=== PATIENT | male | born 1935 | race Caucasian/White ===

== ENCOUNTER 2016-12-31 16:56 | Inpatient (IN) | payer MEDICARE ==
[2016-12-31 19:02] LABS: Basophils % (Auto) 0.5 % (0.0-1.8); Eosinophils % (Auto) 1.4 % (0.0-4.3); Hematocrit 37.5 % (35.5-45.6); Hemoglobin 12.6 gm/dl (11.8-15.2); Mean Corpuscular HGB Conc 33 % (32-34); Mean Corpuscular Hemoglobin 32 pg (28-32); Mean Corpuscular Volume 94 fl (84-94); Platelet Count 189 K/mm3 (140-440); Red Blood Count 3.98 M/mm3 (3.65-5.03); Red Cell Distribution Width 13.9 % (13.2-15.2); White Blood Count 7.2 K/mm3 (4.5-11.0)
[2016-12-31 19:09] LABS: Urine Drugs of Abuse Note Disclamer
--- NOTE | 2016-12-31 19:15 | Emergency Department Report ---
ED Altered Mental Status HPI - General Chief Complaint: Altered Mental Status Stated Complaint: CONFUSED/OFF BALANCED Time Seen by Provider: 12/31/16 18:51 Source: EMS Mode of arrival: Stretcher Limitations: Physical Limitation - History of Present Illness Initial Comments: 81-year-old male with a past medical history dementia and hypertension presents the hospital with a steady gait with associated ground-level fall. Patient is oriented to person only. He is alone and staffing administrator is not at the bedside. Nurse reports history from EMS. Apparently for the past 2 days patient has had unsteady shuffling gait, urinary incontinence, and increased confusion. All this is apparently new for the past 2 days. Patient denies any pain. No further history of present illness available at this time. - Related Data Allergies Allergy/AdvReac Type Severity Reaction Status Date / Time Unable to Assess Allergy Unverified 12/31/16 18:26 ED Review of Systems ROS: Stated complaint: CONFUSED/OFF BALANCED Other details as noted in HPI Comment: All other systems reviewed and negative Other: Constitutional: No fevers chills Eyes: No eye pain visual changes ENT: No ear pain or throat pain Neck: Denies pain Respiratory: Denies cough wheezing shortness of breath Cardiovascular: Denies chest pain GI: Denies abdominal pain : Denies dysuria Musculoskeletal: Denies back koki Skin: Denies rash, lesions, erythema Neurologic: Denies headache, numbness, weakness ED Past Medical Hx - Past Medical History Hx Hypertension: Yes Hx Dementia: Yes - Social History Smoking Status: Former Smoker Substance Use Type: None ED Physical Exam - General Limitations: Physical Limitation - Other Other exam information: General: No limitations, patient is alert in no acute distress Head exam: Atraumatic, normocephalic Eyes exam: Normal appearance, pupils equal reactive to light, extraocular movements intact ENT: Moist mucous membrane, normal oropharynx Neck exam: Normal inspection, full range of motion, no meningismus nontender Respiratory exam: Clear to auscultation bilateral, no wheezes, rales, crackles Cardiovascular: Normal rate and rhythm, normal heart sounds Abdomen: Soft, nondistended, and nontender, with normal bowel sounds, no rebound, or guarding Extremity: Full range of motion normal inspection no deformity Back: Normal Inspection, full range of motion, no tenderness Neurologic: Alert, oriented x1, cranial nerves intact, no motor or sensory deficit Psychiatric: normal affect, normal mood Skin: Warm, dry, intact ED Course Vital Signs 12/31/16 12/31/16 18:19 18:52 Temperature 98.8 F Pulse Rate 64 Respiratory 20 18 Rate Blood Pressure 158/78 Blood Pressure 158/78 [Right] O2 Sat by Pulse 100 100 Oximetry - Lab Data Result diagrams: 12/31/16 18:37 12/31/16 18:37 Lab Results 12/31/16 12/31/16 12/31/16 Range/Units 18:37 18:37 18:37 WBC 7.2 (4.5-11.0) K/mm3 RBC 3.98 (3.65-5.03) M/mm3 Hgb 12.6 (11.8-15.2) gm/dl Hct 37.5 (35.5-45.6) % MCV 94 (84-94) fl MCH 32 (28-32) pg MCHC 33 (32-34) % RDW 13.9 (13.2-15.2) % Plt Count 189 (140-440) K/mm3 Lymph % (Auto) 30.7 (13.4-35.0) % [place] % (Auto) 11.2 H (0.0-7.3) % Eos % (Auto) 1.4 (0.0-4.3) % Baso % (Auto) 0.5 (0.0-1.8) % Lymph # 2.2 (1.2-5.4) K/mm3 [place] # 0.8 (0.0-0.8) K/mm3 Eos # 0.1 (0.0-0.4) K/mm3 Baso # 0.0 (0.0-0.1) K/mm3 Seg Neutrophils % 56.2 (40.0-70.0) % Seg Neutrophils # 4.0 (1.8-7.7) K/mm3 Sodium 141 (137-145) mmol/L Potassium 3.8 (3.6-5.0) mmol/L Chloride 102.0 (98-107) mmol/L Carbon Dioxide 27 (22-30) mmol/L Anion Gap 16 mmol/L BUN 21 H (9-20) mg/dL Creatinine 1.7 H (0.8-1.5) mg/dL Estimated GFR 39 ml/min BUN/Creatinine Ratio 12.35 % Glucose 99 (75-100) mg/dL Lactic Acid 1.3 (0.7-2.0) mmol/L Calcium 9.4 (8.4-10.2) mg/dL Magnesium 2.4 H (1.7-2.3) mg/dL Total Bilirubin 0.4 (0.1-1.2) mg/dL AST 24 (5-40) units/L ALT 14 (7-56) units/L Alkaline Phosphatase 117 (35-129) units/L Total Protein 7.0 (6.3-8.2) g/dL Albumin 3.8 L (3.9-5) g/dL Albumin/Globulin Ratio 1.2 % TSH (0.270-4.200) mlU/mL Urine Color (Yellow) Urine Turbidity (Clear) Urine pH (5.0-7.0) Ur Specific [place] (1.003-1.030) Urine Protein (Negative) mg/dL Urine Glucose (UA) (Negative) mg/dL Urine Ketones (Negative) mg/dL Urine Blood (Negative) Urine Nitrite (Negative) Urine Bilirubin (Negative) Urine Urobilinogen (<2.0) mg/dL Ur Leukocyte Esterase (Negative) Urine WBC (Auto) (0.0-6.0) /HPF Urine RBC (Auto) (0.0-6.0) /HPF U Epithel Cells (Auto) (0-13.0) /HPF Hyaline Casts /LPF Urine Mucus /HPF Salicylates (2.8-20.0) mg/dL Urine Opiates Screen Urine Methadone Screen Acetaminophen (10.0-30.0) ug/mL Ur Barbiturates Screen Ur Phencyclidine Scrn Ur Amphetamines Screen U Benzodiazepines Scrn Urine Cocaine Screen U Marijuana (THC) Screen Drugs of Abuse Note Plasma/Serum Alcohol (0-0.07) gm% 12/31/16 12/31/16 12/31/16 Range/Units 18:37 18:37 18:37 WBC (4.5-11.0) K/mm3 RBC (3.65-5.03) M/mm3 Hgb (11.8-15.2) gm/dl Hct (35.5-45.6) % MCV (84-94) fl MCH (28-32) pg MCHC (32-34) % RDW (13.2-15.2) % Plt Count (140-440) K/mm3 Lymph % (Auto) (13.4-35.0) % [place] % (Auto) (0.0-7.3) % Eos % (Auto) (0.0-4.3) % Baso % (Auto) (0.0-1.8) % Lymph # (1.2-5.4) K/mm3 [place] # (0.0-0.8) K/mm3 Eos # (0.0-0.4) K/mm3 Baso # (0.0-0.1) K/mm3 Seg Neutrophils % (40.0-70.0) % Seg Neutrophils # (1.8-7.7) K/mm3 Sodium (137-145) mmol/L Potassium (3.6-5.0) mmol/L Chloride (98-107) mmol/L Carbon Dioxide (22-30) mmol/L Anion Gap mmol/L BUN (9-20) mg/dL Creatinine (0.8-1.5) mg/dL Estimated GFR ml/min BUN/Creatinine Ratio % Glucose (75-100) mg/dL Lactic Acid (0.7-2.0) mmol/L Calcium (8.4-10.2) mg/dL Magnesium (1.7-2.3) mg/dL Total Bilirubin (0.1-1.2) mg/dL AST (5-40) units/L ALT (7-56) units/L Alkaline Phosphatase (35-129) units/L Total Protein (6.3-8.2) g/dL Albumin (3.9-5) g/dL Albumin/Globulin Ratio % TSH 2.840 (0.270-4.200) mlU/mL Urine Color (Yellow) Urine Turbidity (Clear) Urine pH (5.0-7.0) Ur Specific [place] (1.003-1.030) Urine Protein (Negative) mg/dL Urine Glucose (UA) (Negative) mg/dL Urine Ketones (Negative) mg/dL Urine Blood (Negative) Urine Nitrite (Negative) Urine Bilirubin (Negative) Urine Urobilinogen (<2.0) mg/dL Ur Leukocyte Esterase (Negative) Urine WBC (Auto) (0.0-6.0) /HPF Urine RBC (Auto) (0.0-6.0) /HPF U Epithel Cells (Auto) (0-13.0) /HPF Hyaline Casts /LPF Urine Mucus /HPF Salicylates < 0.3 L (2.8-20.0) mg/dL Urine Opiates Screen Urine Methadone Screen Acetaminophen < 15.0 (10.0-30.0) ug/mL Ur Barbiturates Screen Ur Phencyclidine Scrn Ur Amphetamines Screen U Benzodiazepines Scrn Urine Cocaine Screen U Marijuana (THC) Screen Drugs of Abuse Note Plasma/Serum Alcohol (0-0.07) gm% 12/31/16 12/31/16 12/31/16 Range/Units 18:37 18:55 18:55 WBC (4.5-11.0) K/mm3 RBC (3.65-5.03) M/mm3 Hgb (11.8-15.2) gm/dl Hct (35.5-45.6) % MCV (84-94) fl MCH (28-32) pg MCHC (32-34) % RDW (13.2-15.2) % Plt Count (140-440) K/mm3 Lymph % (Auto) (13.4-35.0) % [place] % (Auto) (0.0-7.3) % Eos % (Auto) (0.0-4.3) % Baso % (Auto) (0.0-1.8) % Lymph # (1.2-5.4) K/mm3 [place] # (0.0-0.8) K/mm3 Eos # (0.0-0.4) K/mm3 Baso # (0.0-0.1) K/mm3 Seg Neutrophils % (40.0-70.0) % Seg Neutrophils # (1.8-7.7) K/mm3 Sodium (137-145) mmol/L Potassium (3.6-5.0) mmol/L Chloride (98-107) mmol/L Carbon Dioxide (22-30) mmol/L Anion Gap mmol/L BUN (9-20) mg/dL Creatinine (0.8-1.5) mg/dL Estimated GFR ml/min BUN/Creatinine Ratio % Glucose (75-100) mg/dL Lactic Acid (0.7-2.0) mmol/L Calcium (8.4-10.2) mg/dL Magnesium (1.7-2.3) mg/dL Total Bilirubin (0.1-1.2) mg/dL AST (5-40) units/L ALT (7-56) units/L Alkaline Phosphatase (35-129) units/L Total Protein (6.3-8.2) g/dL Albumin (3.9-5) g/dL Albumin/Globulin Ratio % TSH (0.270-4.200) mlU/mL Urine Color Yellow (Yellow) Urine Turbidity Cloudy (Clear) Urine pH 5.0 (5.0-7.0) Ur Specific [place] 1.020 (1.003-1.030) Urine Protein 30 mg/dl (Negative) mg/dL Urine Glucose (UA) 50 (Negative) mg/dL Urine Ketones Neg (Negative) mg/dL Urine Blood Sm (Negative) Urine Nitrite Neg (Negative) Urine Bilirubin Neg (Negative) Urine Urobilinogen 2.0 (<2.0) mg/dL Ur Leukocyte Esterase Neg (Negative) Urine WBC (Auto) 1.0 (0.0-6.0) /HPF Urine RBC (Auto) 15.0 (0.0-6.0) /HPF U Epithel Cells (Auto) 2.0 (0-13.0) /HPF Hyaline Casts 3 /LPF Urine Mucus 3+ /HPF Salicylates (2.8-20.0) mg/dL Urine Opiates Screen Presumptive negative Urine Methadone Screen Presumptive negative Acetaminophen (10.0-30.0) ug/mL Ur Barbiturates Screen Presumptive negative Ur Phencyclidine Scrn Presumptive negative Ur Amphetamines Screen Presumptive negative U Benzodiazepines Scrn Presumptive negative Urine Cocaine Screen Presumptive negative U Marijuana (THC) Screen Presumptive negative Drugs of Abuse Note Disclamer Plasma/Serum Alcohol < 0.01 (0-0.07) gm% - EKG Data -: EKG Interpreted by Me (sinus 66, rbb, LVH, lad) When compared to previous EKG there are: previous EKG unavailable - Radiology Data Radiology results: report reviewed CT Head: naf - Medical Decision Making cause of alteration in mental status and gait not identified at this time.Plan to admit to hospital for further eval - Differential Diagnosis UTI, encephalopathy, CVA Critical Care Time: No Critical care attestation.: If time is entered above; I have spent that time in minutes in the direct care of this critically ill patient, excluding procedure time. ED Disposition Clinical Impression: Dementia, Mental status change, Unsteady gait, Renal insufficiency Disposition: OP ADMITTED IP TO THIS HOSP Is pt being admited?: Yes Condition: Stable Time of Disposition: 21:48 (Dr toribio/hosp)
[2016-12-31 19:17] LABS: Bilirubin,Urine NEG (Negative); Blood,Urine SM (Negative); Ketones,Urine NEG (Negative); Leukocyte Esterase,Urine NEG (Negative); Mucus,Urine 3+ /HPF; Nitrite,Urine NEG (Negative)
[2016-12-31 19:24] LABS: Albumin 3.8 g/dL (3.9-5); Albumin/Globulin Ratio 1.2 %; BUN/Creatinine Ratio 12.35; Bilirubin,Total 0.4 mg/dL (0.1-1.2); Calcium 9.4 mg/dL (8.4-10.2); Magnesium 2.4 mg/dL (1.7-2.3); Potassium 3.8 mmol/L (3.6-5.0)
--- NOTE | 2016-12-31 21:02 | Cat Scan Report ---
FINAL REPORT PROCEDURE: CT HEAD/BRAIN WO CON TECHNIQUE: Computerized tomography of the head was performed without contrast material. HISTORY: ams COMPARISON: No prior studies are available for comparison. FINDINGS: Skull and scalp: Normal. Paranasal sinuses: Normal. Ventricles and subarachnoid spaces: Are prominent appropriate for patient's age. Cerebrum: There is moderate degree of bilateral periventricular nonspecific white matter hypodensity. An acute intracranial hemorrhage or mass effect is not identified.. Cerebellum and brainstem: No evidence of hemorrhage, acute infarction or mass. Vasculature: Atherosclerotic calcification is noted involving bilateral internal carotid arteries and vertebral arteries. Comments: None. 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
[2016-12-31] MEDS ORDERED: DULCOLAX PR PRN (22:43)
[2016-12-31] MEDS ORDERED: MILK OF MAGNESIA PO PRN (22:43)
[2016-12-31] MEDS ORDERED: TYLENOL PO PRN (22:43)
[2016-12-31] MEDS ORDERED: ZOFRAN IV PRN (22:43)
--- NOTE | 2016-12-31 22:46 | History and Physical Report ---
History of Present Illness Date of examination: 12/31/16 History of present illness: [id number] man with a history of hypertension, dementia was brought to the emergency room because of unsteady gait and frequent fall. FAmily concerned that patient seems to be more confused than baseline. History from the emergency room physician, patient is unable to give a history PAST SURGICAL HISTORY: Unknown SOCIAL HISTORY: Unknown FAMILY HISTORY: Unknown Medications and Allergies Allergies Allergy/AdvReac Type Severity Reaction Status Date / Time Unable to Assess Allergy Verified 12/31/16 22:48 Home Medications Medication Instructions Recorded Confirmed Last Taken Type Donepezil [Aricept] 5 mg PO QHS 12/31/16 12/31/16 Unknown History Lisinopril [Zestril] 20 mg PO QDAY 12/31/16 12/31/16 Unknown History NIFEdipine [Nifedipine ER] 60 mg PO DAILY 12/31/16 12/31/16 Unknown History hydrALAZINE [Apresoline] 25 mg PO BID 12/31/16 12/31/16 Unknown History risperiDONE 0.5 mg PO QDAY 12/31/16 12/31/16 Unknown History traZODone [Desyrel] 100 mg PO QHS 12/31/16 12/31/16 Unknown History Exam - Physical Exam Narrative exam: Gen. appearance: Patient lying in bed, no apparent distress HEENT: Normocephalic, atraumatic, pupils equally round and reactive to light, extraocular movement intact, and no sclericterus,. No JVD or thyromegaly or nodule,neck supple, no carotid bruit ,mucous membranes moist, no exudate or erythema Heart: S1, S2, regular rate and rhythm Lungs: Clear to auscultation bilaterally, breathing comfortable Abdomen: Positive bowel sounds, nontender, nondistended, no organomegaly Extremity: No edema, cyanosis, clubbing Skin: No rash, nodules, warm, dry Neuro: Oriented 3, cranial nerves II-12 intact, speech is fluent, motor and sensory intact - Constitutional Vitals: Temp Pulse Resp BP Pulse Ox 98.8 F 64 18 158/78 100 12/31/16 18:19 12/31/16 18:19 12/31/16 18:52 12/31/16 18:19 12/31/16 18:52 Results - Labs CBC & Chem 7: 12/31/16 18:37 12/31/16 18:37 Labs: Abnormal lab results 12/31/16 12/31/16 12/31/16 Range/Units 18:37 18:37 18:37 [place] % (Auto) 11.2 H (0.0-7.3) % BUN 21 H (9-20) mg/dL Creatinine 1.7 H (0.8-1.5) mg/dL Magnesium 2.4 H (1.7-2.3) mg/dL Albumin 3.8 L (3.9-5) g/dL Salicylates < 0.3 L (2.8-20.0) mg/dL - Imaging and Cardiology EKG: image reviewed CT Scan - head: report reviewed Assessment and Plan Failure to thrive Fall Hypertension Dementia Admits medicine Consult physical therapy, continue appropriate outpatient medication Start DVT prophylaxis
[2017-01-01 06:26] LABS: Basophils % (Auto) 0.6 % (0.0-1.8); Eosinophils % (Auto) 2.2 % (0.0-4.3); Hematocrit 36.8 % (35.5-45.6); Hemoglobin 12.2 gm/dl (11.8-15.2); Mean Corpuscular HGB Conc 33 % (32-34); Mean Corpuscular Hemoglobin 31 pg (28-32); Mean Corpuscular Volume 94 fl (84-94); Platelet Count 187 K/mm3 (140-440); Red Cell Distribution Width 13.6 % (13.2-15.2); White Blood Count 5.8 K/mm3 (4.5-11.0)
[2017-01-01 06:49] LABS: BUN/Creatinine Ratio 12.66; Calcium 8.9 mg/dL (8.4-10.2); Chloride 104.9 mmol/L (98-107); Potassium 3.6 mmol/L (3.6-5.0)
[2017-01-01] MEDS ORDERED: LOVENOX SUB-Q SCH (10:00)
[2017-01-01] MEDS: LOVENOX SUB-Q SCH (10:16)
[2017-01-01] MEDS: RisperDAL PO SCH (13:03)
--- NOTE | 2017-01-01 14:29 | Progress Note ---
Assessment and Plan - Patient Problems (1) Sick sinus syndrome Current Visit: Yes Status: Acute Plan to address problem: supportive care, telemetry monitoring. (2) ARF (acute renal failure) Current Visit: Yes Status: Acute Qualifiers: Acute renal failure type: A Plan to address problem: IVF, supportive care, (3) Encephalopathy acute Current Visit: Yes Status: Acute Plan to address problem: supportive care, ivf, (4) Dementia Current Visit: Yes Status: Acute Qualifiers: Dementia type: D Alzheimer's disease onset: A Dementia behavioral disturbance: D Plan to address problem: bed alarm, fall precautions. continue current care. (5) Debility Current Visit: Yes Status: Acute Plan to address problem: Pt unable to conduct ADL, Case management consulted for Placement/D/C planning. History Interval history: Pt lying in bed, confused, No reported nursing events. Hospitalist Physical - Constitutional Vitals: Temp Pulse Resp BP Pulse Ox 98.3 F 54 L 20 144/71 94 01/01/17 07:40 01/01/17 07:40 01/01/17 07:40 01/01/17 07:40 01/01/17 10:14 General appearance: Present: no acute distress - Neck Neck: Present: supple - Respiratory Respiratory effort: normal Respiratory: bilateral: CTA - Cardiovascular Rhythm: other (bradycardia) - Extremities Extremities: no ischemia Peripheral Pulses: within normal limits - Abdominal General gastrointestinal: soft, non-tender, non-distended - Integumentary Integumentary: Present: clear, dry - Psychiatric Psychiatric: no intact judgment & insight, no memory intact - Neurologic Neurologic: no gait normal Results - Labs CBC & Chem 7: 01/01/17 05:37 01/01/17 05:37 Labs: Laboratory Last Values WBC 5.8 K/mm3 (4.5-11.0) 01/01/17 05:37 RBC 3.90 M/mm3 (3.65-5.03) 01/01/17 05:37 Hgb 12.2 gm/dl (11.8-15.2) 01/01/17 05:37 Hct 36.8 % (35.5-45.6) 01/01/17 05:37 MCV 94 fl (84-94) 01/01/17 05:37 MCH 31 pg (28-32) 01/01/17 05:37 MCHC 33 % (32-34) 01/01/17 05:37 RDW 13.6 % (13.2-15.2) 01/01/17 05:37 Plt Count 187 K/mm3 (140-440) 01/01/17 05:37 Lymph % (Auto) 35.1 % (13.4-35.0) H 01/01/17 05:37 [place] % (Auto) 11.4 % (0.0-7.3) H 01/01/17 05:37 Eos % (Auto) 2.2 % (0.0-4.3) 01/01/17 05:37 Baso % (Auto) 0.6 % (0.0-1.8) 01/01/17 05:37 Lymph # 2.0 K/mm3 (1.2-5.4) 01/01/17 05:37 [place] # 0.7 K/mm3 (0.0-0.8) 01/01/17 05:37 Eos # 0.1 K/mm3 (0.0-0.4) 01/01/17 05:37 Baso # 0.0 K/mm3 (0.0-0.1) 01/01/17 05:37 Seg Neutrophils % 50.7 % (40.0-70.0) 01/01/17 05:37 Seg Neutrophils # 2.9 K/mm3 (1.8-7.7) 01/01/17 05:37 Sodium 144 mmol/L (137-145) 01/01/17 05:37 Potassium 3.6 mmol/L (3.6-5.0) 01/01/17 05:37 Chloride 104.9 mmol/L (98-107) 01/01/17 05:37 Carbon Dioxide 27 mmol/L (22-30) 01/01/17 05:37 Anion Gap 16 mmol/L 01/01/17 05:37 BUN 19 mg/dL (9-20) 01/01/17 05:37 Creatinine 1.5 mg/dL (0.8-1.5) 01/01/17 05:37 Estimated GFR 45 ml/min 01/01/17 05:37 BUN/Creatinine Ratio 12.66 % 01/01/17 05:37 Glucose 98 mg/dL (75-100) 01/01/17 05:37 Lactic Acid 1.2 mmol/L (0.7-2.0) 12/31/16 21:00 Calcium 8.9 mg/dL (8.4-10.2) 01/01/17 05:37 Magnesium 2.4 mg/dL (1.7-2.3) H 12/31/16 18:37 Total Bilirubin 0.4 mg/dL (0.1-1.2) 12/31/16 18:37 AST 24 units/L (5-40) 12/31/16 18:37 ALT 14 units/L (7-56) 12/31/16 18:37 Alkaline Phosphatase 117 units/L (35-129) 12/31/16 18:37 Total Protein 7.0 g/dL (6.3-8.2) 12/31/16 18:37 Albumin 3.8 g/dL (3.9-5) L 12/31/16 18:37 Albumin/Globulin Ratio 1.2 % 12/31/16 18:37 TSH 2.840 mlU/mL (0.270-4.200) 12/31/16 18:37 Urine Color Yellow (Yellow) 12/31/16 18:55 Urine Turbidity Cloudy (Clear) 12/31/16 18:55 Urine pH 5.0 (5.0-7.0) 12/31/16 18:55 Ur Specific [place] 1.020 (1.003-1.030) 12/31/16 18:55 Urine Protein 30 mg/dl mg/dL (Negative) 12/31/16 18:55 Urine Glucose (UA) 50 mg/dL (Negative) 12/31/16 18:55 Urine Ketones Neg mg/dL (Negative) 12/31/16 18:55 Urine Blood Sm (Negative) 12/31/16 18:55 Urine Nitrite Neg (Negative) 12/31/16 18:55 Urine Bilirubin Neg (Negative) 12/31/16 18:55 Urine Urobilinogen 2.0 mg/dL (<2.0) 12/31/16 18:55 Ur Leukocyte Esterase Neg (Negative) 12/31/16 18:55 Urine WBC (Auto) 1.0 /HPF (0.0-6.0) 12/31/16 18:55 Urine RBC (Auto) 15.0 /HPF (0.0-6.0) 12/31/16 18:55 U Epithel Cells (Auto) 2.0 /HPF (0-13.0) 12/31/16 18:55 Hyaline Casts 3 /LPF 12/31/16 18:55 Urine Mucus 3+ /HPF 12/31/16 18:55 Salicylates < 0.3 mg/dL (2.8-20.0) L 12/31/16 18:37 Urine Opiates Screen Presumptive negative 12/31/16 18:55 Urine Methadone Screen Presumptive negative 12/31/16 18:55 Acetaminophen < 15.0 ug/mL (10.0-30.0) 12/31/16 18:37 Ur Barbiturates Screen Presumptive negative 12/31/16 18:55 Ur Phencyclidine Scrn Presumptive negative 12/31/16 18:55 Ur Amphetamines Screen Presumptive negative 12/31/16 18:55 U Benzodiazepines Scrn Presumptive negative 12/31/16 18:55 Urine Cocaine Screen Presumptive negative 12/31/16 18:55 U Marijuana (THC) Screen Presumptive negative 12/31/16 18:55 Drugs of Abuse Note Disclamer 12/31/16 18:55 Plasma/Serum Alcohol < 0.01 gm% (0-0.07) 12/31/16 18:37
[2017-01-01] MEDS: ARICEPT PO SCH (21:47)
[2017-01-02] MEDS: LOVENOX SUB-Q SCH (10:13)
[2017-01-02] MEDS: RisperDAL PO SCH (10:13)
[2017-01-02] MEDS: ARICEPT PO SCH (22:44)
--- NOTE | 2017-01-03 06:41 | Progress Note ---
Assessment and Plan - Patient Problems (1) Sick sinus syndrome Current Visit: Yes Status: Acute Plan to address problem: supportive care, telemetry monitoring. (2) ARF (acute renal failure) Current Visit: Yes Status: Acute Qualifiers: Acute renal failure type: A Plan to address problem: IVF, supportive care, (3) Encephalopathy acute Current Visit: Yes Status: Acute Plan to address problem: supportive care, ivf, (4) Dementia Current Visit: Yes Status: Acute Qualifiers: Dementia type: D Alzheimer's disease onset: A Dementia behavioral disturbance: D Plan to address problem: bed alarm, fall precautions. continue current care. (5) Debility Current Visit: Yes Status: Acute Plan to address problem: Pt unable to conduct ADL, Case management consulted for Placement/D/C planning. (6) DVT prophylaxis Current Visit: Yes Status: Acute History Interval history: Pt lying in bed, confused, No reported nursing events. Hospitalist Physical - Constitutional Vitals: Temp Pulse Resp BP Pulse Ox 97.9 F 60 18 131/77 98 01/02/17 23:52 01/02/17 23:52 01/02/17 23:52 01/02/17 23:52 01/02/17 23:52 General appearance: Present: no acute distress - Neck Neck: Present: supple - Respiratory Respiratory: bilateral: CTA - Cardiovascular Rhythm: other (bradycardia) - Extremities Extremities: no ischemia Peripheral Pulses: within normal limits - Abdominal General gastrointestinal: soft, non-tender, non-distended - Integumentary Integumentary: Present: clear, dry - Psychiatric Psychiatric: no intact judgment & insight, no memory intact - Neurologic Neurologic: no gait normal Results - Labs CBC & Chem 7: 01/01/17 05:37 01/01/17 05:37 Labs: Laboratory Last Values WBC 5.8 K/mm3 (4.5-11.0) 01/01/17 05:37 RBC 3.90 M/mm3 (3.65-5.03) 01/01/17 05:37 Hgb 12.2 gm/dl (11.8-15.2) 01/01/17 05:37 Hct 36.8 % (35.5-45.6) 01/01/17 05:37 MCV 94 fl (84-94) 01/01/17 05:37 MCH 31 pg (28-32) 01/01/17 05:37 MCHC 33 % (32-34) 01/01/17 05:37 RDW 13.6 % (13.2-15.2) 01/01/17 05:37 Plt Count 187 K/mm3 (140-440) 01/01/17 05:37 Lymph % (Auto) 35.1 % (13.4-35.0) H 01/01/17 05:37 [place] % (Auto) 11.4 % (0.0-7.3) H 01/01/17 05:37 Eos % (Auto) 2.2 % (0.0-4.3) 01/01/17 05:37 Baso % (Auto) 0.6 % (0.0-1.8) 01/01/17 05:37 Lymph # 2.0 K/mm3 (1.2-5.4) 01/01/17 05:37 [place] # 0.7 K/mm3 (0.0-0.8) 01/01/17 05:37 Eos # 0.1 K/mm3 (0.0-0.4) 01/01/17 05:37 Baso # 0.0 K/mm3 (0.0-0.1) 01/01/17 05:37 Seg Neutrophils % 50.7 % (40.0-70.0) 01/01/17 05:37 Seg Neutrophils # 2.9 K/mm3 (1.8-7.7) 01/01/17 05:37 Sodium 144 mmol/L (137-145) 01/01/17 05:37 Potassium 3.6 mmol/L (3.6-5.0) 01/01/17 05:37 Chloride 104.9 mmol/L (98-107) 01/01/17 05:37 Carbon Dioxide 27 mmol/L (22-30) 01/01/17 05:37 Anion Gap 16 mmol/L 01/01/17 05:37 BUN 19 mg/dL (9-20) 01/01/17 05:37 Creatinine 1.5 mg/dL (0.8-1.5) 01/01/17 05:37 Estimated GFR 45 ml/min 01/01/17 05:37 BUN/Creatinine Ratio 12.66 % 01/01/17 05:37 Glucose 98 mg/dL (75-100) 01/01/17 05:37 Lactic Acid 1.2 mmol/L (0.7-2.0) 12/31/16 21:00 Calcium 8.9 mg/dL (8.4-10.2) 01/01/17 05:37 Magnesium 2.4 mg/dL (1.7-2.3) H 12/31/16 18:37 Total Bilirubin 0.4 mg/dL (0.1-1.2) 12/31/16 18:37 AST 24 units/L (5-40) 12/31/16 18:37 ALT 14 units/L (7-56) 12/31/16 18:37 Alkaline Phosphatase 117 units/L (35-129) 12/31/16 18:37 Total Protein 7.0 g/dL (6.3-8.2) 12/31/16 18:37 Albumin 3.8 g/dL (3.9-5) L 12/31/16 18:37 Albumin/Globulin Ratio 1.2 % 12/31/16 18:37 TSH 2.840 mlU/mL (0.270-4.200) 12/31/16 18:37 Urine Color Yellow (Yellow) 12/31/16 18:55 Urine Turbidity Cloudy (Clear) 12/31/16 18:55 Urine pH 5.0 (5.0-7.0) 12/31/16 18:55 Ur Specific [place] 1.020 (1.003-1.030) 12/31/16 18:55 Urine Protein 30 mg/dl mg/dL (Negative) 12/31/16 18:55 Urine Glucose (UA) 50 mg/dL (Negative) 12/31/16 18:55 Urine Ketones Neg mg/dL (Negative) 12/31/16 18:55 Urine Blood Sm (Negative) 12/31/16 18:55 Urine Nitrite Neg (Negative) 12/31/16 18:55 Urine Bilirubin Neg (Negative) 12/31/16 18:55 Urine Urobilinogen 2.0 mg/dL (<2.0) 12/31/16 18:55 Ur Leukocyte Esterase Neg (Negative) 12/31/16 18:55 Urine WBC (Auto) 1.0 /HPF (0.0-6.0) 12/31/16 18:55 Urine RBC (Auto) 15.0 /HPF (0.0-6.0) 12/31/16 18:55 U Epithel Cells (Auto) 2.0 /HPF (0-13.0) 12/31/16 18:55 Hyaline Casts 3 /LPF 12/31/16 18:55 Urine Mucus 3+ /HPF 12/31/16 18:55 Salicylates < 0.3 mg/dL (2.8-20.0) L 12/31/16 18:37 Urine Opiates Screen Presumptive negative 12/31/16 18:55 Urine Methadone Screen Presumptive negative 12/31/16 18:55 Acetaminophen < 15.0 ug/mL (10.0-30.0) 12/31/16 18:37 Ur Barbiturates Screen Presumptive negative 12/31/16 18:55 Ur Phencyclidine Scrn Presumptive negative 12/31/16 18:55 Ur Amphetamines Screen Presumptive negative 12/31/16 18:55 U Benzodiazepines Scrn Presumptive negative 12/31/16 18:55 Urine Cocaine Screen Presumptive negative 12/31/16 18:55 U Marijuana (THC) Screen Presumptive negative 12/31/16 18:55 Drugs of Abuse Note Disclamer 12/31/16 18:55 Plasma/Serum Alcohol < 0.01 gm% (0-0.07) 12/31/16 18:37
[2017-01-03 09:48] VITALS: BP 188/81
[2017-01-03] MEDS: RisperDAL PO SCH (10:10)
[2017-01-03] MEDS: LOVENOX SUB-Q SCH (10:10)
--- NOTE | 2017-01-03 17:47 | Discharge Summary ---
Providers - Providers Date of Admission: 12/31/16 22:43 Attending physician: WAQAR AVERY Primary care physician: [employer] Hospitalization Condition: Stable Hospital course: 81 YO Male admitted for ARF, Sick Sinus Synrome, Malnutrition, Debility. Pt admitted to medical floor. Pt treated with IVF,and supportive care. Pt found to have sinus bradyarrythmia during hospital course. Pt remained hemodynamically stable and within normal limits. Pt convalesced well during hospital course with improvement in symptoms with supportive care. Pt poor prognosis discussed with family, but pt family decline placement. Pt family elects to have patient return home with home health. Pt seen and evaluated prior to discharge but no significant new physical exam findings since admission. Pt discharged and instructed to f/u pcp 1wk, and to f/u with cardiology as outpatient. Pt family counseled regarding increased protein diet, balanced diet, low sodium diet. 35 minutes dedicated to pt discharge and education. Disposition: DC/[place] HOME UNDER HOME HEALTH - Discharge Diagnoses (1) Sick sinus syndrome Status: Acute (2) ARF (acute renal failure) Status: Acute Qualifiers: Acute renal failure type: A (3) Encephalopathy acute Status: Acute (4) Dementia Status: Acute Qualifiers: Dementia type: D Alzheimer's disease onset: A Dementia behavioral disturbance: D (5) Debility Status: Acute (6) DVT prophylaxis Status: Acute Core Measure Documentation - Palliative Care Palliative Care/ Comfort Measures: Not Applicable - Core Measures Any of the following diagnoses?: none Exam - Constitutional Vitals: Temp Pulse Resp BP Pulse Ox 97.9 F 52 L 20 188/81 99 01/03/17 08:47 01/03/17 08:47 01/03/17 08:47 01/03/17 08:47 01/03/17 08:47 General appearance: Present: no acute distress - EENT Eyes: Present: PERRL - Neck Neck: Present: supple - Respiratory Respiratory: bilateral: diminished - Cardiovascular Rhythm: other (bradycardia) Heart Sounds: Present: S1 & S2 - Extremities Extremities: pulses symmetrical, No edema Peripheral Pulses: within normal limits - Abdominal General gastrointestinal: Present: soft, non-tender, non-distended, normal bowel sounds Male genitourinary: Present: normal - Integumentary Integumentary: Present: clear, warm, dry - Musculoskeletal Musculoskeletal: generalized weakness - Psychiatric Psychiatric: no intact judgment & insight, no memory intact Plan Activity: advance as tolerated Follow up with: PRIMARY CARE, [Primary Care Provider] - 7 Days
== END 2017-01-03 18:50 | disposition home health service (06) | DRG 682 ==
LOC: ED 16:56 → 3A 22:43
PROVIDERS: ADMIT Internal Medicine; ATTEND Internal Medicine
DX: N17.9 Acute kidney failure, unspecified (principal); G93.49 Other encephalopathy; E46 Unspecified protein-calorie malnutrition; I10 Essential (primary) hypertension; R26.81 Unsteadiness on feet; R62.7 Adult failure to thrive; I49.5 Sick sinus syndrome; F03.90 Unspecified dementia, unspecified severity, without behavioral disturbance, psychotic disturbance, mood disturbance, and anxiety; Z87.891 Personal history of nicotine dependence; Z68.24 Body mass index [BMI] 24.0-24.9, adult; Z71.3 Dietary counseling and surveillance
CPT/HCPCS: 36415; 70450; 80048; 80053; 80307; 80320; 81001; 82140; 82962; 83735; 84443; 85025; 93005; 93010; G0480; J1650